=== PATIENT | male | born 1995 | race African-American/Black ===

== ENCOUNTER 2017-11-14 13:15 | Emergency (ER) | payer OTHER ==
[~2017-11-14] VITALS: Ht 177.8 cm; Wt 74.8 kg
[~2017-11-14 13:15] MED LIST: ALBU1AER9 INH; AZIT250T PO; BENZ100C84 PO; DICY20TA35 PO; IBUP-1459 PO; ONDA4TAB46 PO
[2017-11-14 13:19] VITALS: Ht 177.8 cm; Wt 74.8 kg
[2017-11-14] MEDS ORDERED: CEPH500C PO (13:39)
[2017-11-14] MEDS ORDERED: SULF800T23 PO (13:39)
--- NOTE | 2017-11-14 13:44 | EMERGENCY ROOM VISIT NOTE ---
History First contact with patient: 13:23 Chief Complaint: WOUND INFECTION Stated Complaint: BOIL/BUMP ON BUTTOCKS,STILL IRRITATED AFTER MEDS Nursing Triage Summary: pt reports he went to urgent care 3 weeks ago given antibiotics then and has since gotten bigger, has been attempoting to pop using warm compresses not helping. hurts to sit. on right buttocks History of Present Illness The patient is a 22 year old male who presents to the Emergency Room with complaints of 3 painful lumps on his right buttock. The patient reports that he was seen at an urgent care center 3 weeks ago for a similar infection. He was provided a prescription for Bactrim, and denies any significant improvement. The patient reports that over the past few days, the one lump has gotten significantly larger and more painful, especially when sitting on his buttocks. The patient has not noticed any drainage over the past few days, but reports that about a week ago there was a small amount of pus came out of it. The patient denies any fevers or chills, and rates his discomfort a 5 out of 10. Review of Systems 10 system review was performed and was negative except for pertinent positives and negatives as indicated in history of present illness Past Medical/Surgical History Medical Problems: (1) Asthma (2) Otitis media of right ear (3) Upper respiratory infection Surgical Problems: (1) S/P tonsillectomy Family History Cancer Diabetes mellitus FHx: irritable bowel syndrome Gallbladder disease Heart disease Hypertension Kidney disease Kidney stones Lung disease Social History Smoking Status: Current Every Day Smoker Alcohol Use: none Drug Use: none Marital Status: single Housing Status: lives with family Occupation Status: employed Current/Historical Medications Scheduled Cephalexin Monohydrate (Keflex), 500 MG PO QID Dicyclomine Hcl (Bentyl), 20 MG PO BID Sulfa/Trimethoprim (Bactrim Ds 800MG/160MG), 1 TAB PO BID Scheduled PRN Albuterol (Proair Hfa), 2 PUFFS INH Q4H PRN for SOB/Wheezing Physical Exam Vital Signs Date Time Temp Pulse Resp B/P (MAP) Pulse Ox O2 Delivery O2 Flow Rate FiO2 11/14/17 13:19 36.7 100 18 113/78 98 Room Air Physical Exam CONSTITUTIONAL: Healthy and well nourished. Alert and oriented X 3 with positive affect. HEENT: Normocephalic, atraumatic. Pupils equal, round and reactive. MUSCULOSKELETAL: Full range of motion of all joints without discomfort. INTEGUMENTARY: Examination of the right medial buttock shows an area of induration about the size of a BB that is tender to palpation. There is no overriding erythema, fluctuance or drainage. It too additional sites are more medial and inferior and barely palpable without any surrounding erythema. NEUROLOGIC: No focal neurologic deficits noted. Medical Decision & Procedures ED Course Patient history and physical exam were performed. Nurse's notes were reviewed. Vital signs were reviewed and were normal. The patient was advised that there is currently no abscess formation, therefore attempted I&D procedure was not recommended. The patient will be provided a couple coverage with Keflex and Bactrim DS antibiotics. He was encouraged to return for any progressively worsening infection, otherwise may follow up with his PCP as needed. The patient was advised that if these continue to reoccur, he may need to see a board machine set up operator for excision. This can be arranged through his PCP. The patient was encouraged to intermittently apply a warm moist compress, and alternate ibuprofen and Tylenol as needed for additional pain relief. The patient was happy with plan of care, voiced understanding of all discharge instructions, refused any analgesics while in the emergency department, and rated his pain a 3 out of 10 at the conclusion of my exam. Medical Decision Medication Reconcilliation Current Medication List: was personally reviewed by me Blood Pressure Screening Patient's blood pressure: Normal blood pressure Impression Primary Impression: Cellulitis of right buttock Departure Information Dispostion Home / Self-Care Prescriptions Sulfa/Trimethoprim (Bactrim Ds 800MG/160MG) Tab 1 TAB PO BID for 7 Days, #14 TAB Prov: Hood Guzman PA 11/14/17 Cephalexin Monohydrate (Keflex) 500 Mg Cap 500 MG PO QID for 7 Days, #28 CAP Prov: Hood Guzman PA 11/14/17 Referrals No Doctor, Assigned Forms HOME CARE DOCUMENTATION FORM, IMPORTANT VISIT INFORMATION Patient Instructions My [facility] Additional Instructions Complete all Keflex and Bactrim DS antibiotics as prescribed. Continue to intermittently apply warm moist compresses to help promote drainage. Ibuprofen 800 mg and/or Tylenol 1000 mg every 8 hours. You may also alternate these medications for more effective pain relief: Ibuprofen --4 HRS--> Tylenol --4 HRS--> ibuprofen --4 HRS--> Tylenol .... Return for any progressively worsening swelling or developing fever.
[2017-11-14 13:45] VITALS: BP 113/78; PULSE 100; TEMP 36.7; O2SAT 98
== END 2017-11-14 13:46 | disposition home or self-care (01) ==
LOC: C.EDB 13:17 → C.EDD 13:46
DX: L03.317 Cellulitis of buttock (principal); J45.909 Unspecified asthma, uncomplicated; F17.200 Nicotine dependence, unspecified, uncomplicated; Z80.9 Family history of malignant neoplasm, unspecified; Z83.3 Family history of diabetes mellitus; Z83.79 Family history of other diseases of the digestive system; Z82.49 Family history of ischemic heart disease and other diseases of the circulatory system; Z84.1 Family history of disorders of kidney and ureter

== ENCOUNTER 2018-03-28 10:03 | Emergency (ER) | payer OTHER ==
[~2018-03-28] VITALS: Ht 177.8 cm; Wt 74.1 kg
[~2018-03-28 10:03] MED LIST changes: -AZIT250T PO; -BENZ100C84 PO; -IBUP-1459 PO; -ONDA4TAB46 PO
[2018-03-28 10:12] VITALS: TEMP 36.6; Ht 177.8 cm; Wt 74.1 kg
[2018-03-28] MEDS ORDERED: ONDANSETRON INJ 2 MG/ML 2 ML VIAL IV STA (10:30)
[2018-03-28] MEDS ORDERED: SODIUM CHLORIDE 0.9% 1000ML 1,000 ML IV STA (10:30)
[2018-03-28] MEDS ORDERED: MoRPHine SULFATE 4 MG/ML 1 ML CARP\\VIAL IV STA (10:34)
[2018-03-28] MEDS ORDERED: ONDA4TAB46 PO (10:47)
[2018-03-28] MEDS ORDERED: RANI300T2 PO (10:47)
[2018-03-28] MEDS ORDERED: LVS125 PO (10:47)
[2018-03-28 11:11] LABS: BASO % 0.3 %; BASO ABS # 0.02 K/uL (0-0.2); EOS % 2.6 %; EOS ABS # 0.21 K/uL (0-0.5); HEMATOCRIT 48.7 % (42-52); HEMOGLOBIN 17.4 g/dL (14.0-18.0); IG# 0.01 K/uL (0.00-0.02); LYMPH ABS # 2.07 K/uL (1.2-3.4); MEAN CELL VOLUME 85.4 fL (80-100); MEAN CORPUSCULAR HEMOGLOBIN 30.5 pg (25-34); MEAN CORPUSCULAR HGB CONC 35.7 g/dl (32-36); MEAN PLATELET VOLUME 9.5 fL (7.4-10.4); MONO % 7.9 %; MONO ABS # 0.63 K/uL (0.11-0.59); NEUT % 63.1 %; NEUT ABS # 5.02 K/uL (1.4-6.5); PLATELET COUNT 205 K/uL (130-400); RED CELL DISTRIBUTION WIDTH CV 12.5 % (11.5-14.5); RED CELL DISTRIBUTION WIDTH SD 39.4 fL (36.4-46.3); WHITE BLOOD COUNT 7.96 K/uL (4.8-10.8)
[2018-03-28] MEDS ORDERED: OPTIRAY 320 IV PRN (11:15)
[2018-03-28 11:26] LABS: ALBUMIN 4.4 gm/dl (3.4-5.0); CALCIUM 9.6 mg/dl (8.5-10.1)
[2018-03-28 11:29] LABS: TOTAL PROTEIN 7.4 gm/dl (6.4-8.2)
--- NOTE | 2018-03-28 13:40 | DIAGNOSTIC IMAGING REPORT ---
ABDOMEN AND PELVIS CT WITH IV AND ORAL CONTRAST CT DOSE: 462.78 mGycm HISTORY: Chronic rectal pain with diarrhea rectal pain and diarrhea eval for colitis TECHNIQUE: Multiaxial CT images of the abdomen and pelvis were performed following the use of intravenous and oral contrast. A dose lowering technique was utilized adhering to the principles of ALARA. COMPARISON STUDY: CT abdomen and pelvis 01/27/2016. FINDINGS: Lung bases are clear. No pneumatosis or pneumoperitoneum. Imaged inferior cardiac chambers are unremarkable. Gallbladder is mildly contracted. Liver, spleen, pancreas and adrenal glands are within normal limits. Kidneys, ureters and bladder are within normal limits. Aorta is normal in course and caliber. No bulky adenopathy. No bowel obstruction or focal bowel wall thickening identified. No focal abnormality identified within the rectum. No perirectal abscess or significant inflammatory changes. Mild tortuosity of the sigmoid colon. Normal appendix. No ascites or mesenteric inflammatory changes. Soft tissues are within normal limits. Bones appear intact. IMPRESSION: 1. No acute intra-abdominal or intrapelvic abnormality identified. No bowel obstruction or focal bowel wall thickening. 2. Normal appendix. Electronically signed by: Ketan Auguste M.D. 03/28/2018 1:39 PM Dictated Date/Time: 03/28/2018 1:32 PM
[2018-03-28 13:51] VITALS: BP 114/60; PULSE 66; O2SAT 100
[2018-03-28] MEDS ORDERED: ONDA4TAB10 SL (13:51)
--- NOTE | 2018-03-28 16:24 | EMERGENCY ROOM VISIT NOTE ---
History Report prepared by Gio: Belen Vasquez Under the Supervision of: Dr. Kar Fitzpatrick M.D. First contact with patient: 10:23 Chief Complaint: DIARRHEA Stated Complaint: DIARRHEA,RECTAL PAIN,POSSIBLE UC FLARE History of Present Illness The patient is a 23 year old male who presents to the Emergency Room with complaints of persistent diarrhea starting 3 days ago. He reports that he went to the bathroom 7 times during the course of the night. His stool has been watery, but without blood. He did have some blood on the toilet paper after wiping. He vomited yesterday. He reports cramping abdominal pain. He is having rectal pain which feels like needles. He has had rectal pain for 2 months now. He also has chronic diarrhea. He is followed by a corporate travel coordinator. The patient states that he has had worsening abdominal pain and diarrhea over the past 2 years. He had blood work 2 weeks ago indicating possible autoimmune disease. He is scheduled for a colonoscopy and endoscopy for possible ulcerative colitis. He is on ranitidine and Laxin. He is fatigued. He denies any urinary symptoms. He is unsure of fever because he does not have a thermometer at home. Source of History: patient Onset: 3 days ago Position: abdomen Quality: other (diarrhea) Timing: other (persistent) Associated Symptoms: + vomiting, + abdominal pain, + fatigue, No hematochezia, No urinary symptoms Note: Pt reports rectal pain. Review of Systems See HPI for pertinent positives & negatives. A total of 10 systems reviewed and were otherwise negative. Past Medical & Surgical Medical Problems: (1) Asthma (2) Otitis media of right ear (3) Type 2 Diabetes Mellitus Without Complications (4) Upper respiratory infection Surgical Problems: (1) S/P tonsillectomy Family History Cancer Diabetes mellitus FHx: irritable bowel syndrome Gallbladder disease Heart disease Hypertension Kidney disease Kidney stones Lung disease Social History Smoking Status: Current Every Day Smoker Alcohol Use: none Drug Use: none Marital Status: single Housing Status: lives with family Occupation Status: employed Current/Historical Medications Scheduled Hyoscyamine Sulfate (Hyoscyamine Sulfate), 1 TAB PO QID Ondasetron Odt (Zofran Odt), 4 MG SL Q6H Ranitidine (Zantac), 300 MG PO HS Scheduled PRN Ondansetron Hcl (Zofran), 4 MG PO for Nausea Allergies Coded Allergies: No Known Allergies (Unverified , NONE, 03/28/18) Physical Exam Vital Signs Date Time Temp Pulse Resp B/P (MAP) Pulse Ox O2 Delivery O2 Flow Rate FiO2 03/28/18 13:51 66 18 114/60 100 Room Air 03/28/18 11:50 78 18 112/75 99 Room Air 03/28/18 10:12 36.6 126 18 134/67 99 Room Air Physical Exam Constitutional: Vital signs reviewed. Eyes: Pupils are equal round reactive to light. Conjunctiva are noninjected. ENT: Pharynx is clear without erythema or exudate. Mucous membranes are dry. Neck supple without meningeal signs. Respiratory: Clear to auscultation bilaterally. Breath sounds are equal bilaterally. Cardiovascular: Regular rate and rhythm. No rubs or gallops. GI: Soft, nondistended and lower abdominal tenderness without guarding. Bowel sounds are present. Musculoskeletal: No peripheral edema. No lower extremity tenderness. Integumentary: No cyanosis. Neurological: The patient is awake and alert. No focal deficits. Psychiatric: Normal affect. Medical Decision & Procedures ER Provider Diagnostic Interpretation: Radiology results as stated below per my review and the radiologist's interpretation: ABDOMEN AND PELVIS CT WITH IV AND ORAL CONTRAST CT DOSE: 462.78 mGycm HISTORY: Chronic rectal pain with diarrhea rectal pain and diarrhea eval for colitis TECHNIQUE: Multiaxial CT images of the abdomen and pelvis were performed following the use of intravenous and oral contrast. A dose lowering technique was utilized adhering to the principles of ALARA. COMPARISON STUDY: CT abdomen and pelvis 01/27/2016. FINDINGS: Lung bases are clear. No pneumatosis or pneumoperitoneum. Imaged inferior cardiac chambers are unremarkable. Gallbladder is mildly contracted. Liver, spleen, pancreas and adrenal glands are within normal limits. Kidneys, ureters and bladder are within normal limits. Aorta is normal in course and caliber. No bulky adenopathy. No bowel obstruction or focal bowel wall thickening identified. No focal abnormality identified within the rectum. No perirectal abscess or significant inflammatory changes. Mild tortuosity of the sigmoid colon. Normal appendix. No ascites or mesenteric inflammatory changes. Soft tissues are within normal limits. Bones appear intact. IMPRESSION: 1. No acute intra-abdominal or intrapelvic abnormality identified. No bowel obstruction or focal bowel wall thickening. 2. Normal appendix. Electronically signed by: Ketan Auguste M.D. 03/28/2018 1:39 PM Dictated Date/Time: 03/28/2018 1:32 PM Laboratory Results 03/28/18 11:05 Red Blood Count 5.70, Mean Corpuscular Volume 85.4, Mean Corpuscular Hemoglobin 30.5, Mean Corpuscular Hemoglobin Concent 35.7, Mean Platelet Volume 9.5, Neutrophils (%) (Auto) 63.1, Lymphocytes (%) (Auto) 26.0, Monocytes (%) (Auto) 7.9, Eosinophils (%) (Auto) 2.6, Basophils (%) (Auto) 0.3, Neutrophils # (Auto) 5.02, Lymphocytes # (Auto) 2.07, Monocytes # (Auto) 0.63, Eosinophils # (Auto) 0.21, Basophils # (Auto) 0.02 03/28/18 11:05 Test 03/28/18 11:05 03/28/18 11:50 White Blood Count 7.96 K/uL (4.8-10.8) Red Blood Count 5.70 M/uL (4.7-6.1) Hemoglobin 17.4 g/dL (14.0-18.0) Hematocrit 48.7 % (42-52) Mean Corpuscular Volume 85.4 fL (80-100) Mean Corpuscular Hemoglobin 30.5 pg (25-34) Mean Corpuscular Hemoglobin Concent 35.7 g/dl (32-36) Platelet Count 205 K/uL (130-400) Mean Platelet Volume 9.5 fL (7.4-10.4) Neutrophils (%) (Auto) 63.1 % Lymphocytes (%) (Auto) 26.0 % Monocytes (%) (Auto) 7.9 % Eosinophils (%) (Auto) 2.6 % Basophils (%) (Auto) 0.3 % Neutrophils # (Auto) 5.02 K/uL (1.4-6.5) Lymphocytes # (Auto) 2.07 K/uL (1.2-3.4) Monocytes # (Auto) 0.63 K/uL (0.11-0.59) Eosinophils # (Auto) 0.21 K/uL (0-0.5) Basophils # (Auto) 0.02 K/uL (0-0.2) RDW Standard Deviation 39.4 fL (36.4-46.3) RDW Coefficient of Variation 12.5 % (11.5-14.5) Immature Granulocyte % (Auto) 0.1 % Immature Granulocyte # (Auto) 0.01 K/uL (0.00-0.02) Anion Gap 7.0 mmol/L (3-11) Est Creatinine Clear Calc Drug Dose 120.7 ml/min Estimated GFR () 124.1 Estimated GFR (Non- 107.1 BUN/Creatinine Ratio 8.6 (10-20) Calcium Level 9.6 mg/dl (8.5-10.1) Total Bilirubin 0.9 mg/dl (0.2-1) Direct Bilirubin 0.2 mg/dl (0-0.2) Aspartate Amino Transf (AST/SGOT) 21 U/L (15-37) Alanine Aminotransferase (ALT/SGPT) 29 U/L (12-78) Alkaline Phosphatase 108 U/L (45-117) Total Protein 7.4 gm/dl (6.4-8.2) Albumin 4.4 gm/dl (3.4-5.0) Lipase 208 U/L (73-393) Urine Color YELLOW Urine Appearance CLEAR (CLEAR) Urine pH 8.0 (4.5-7.5) Urine Specific [place] 1.009 (1.000-1.030) Urine Protein NEG (NEG) Urine Glucose (UA) NEG (NEG) Urine Ketones NEG (NEG) Urine Occult Blood NEG (NEG) Urine Nitrite NEG (NEG) Urine Bilirubin NEG (NEG) Urine Urobilinogen NEG (NEG) Urine Leukocyte Esterase NEG (NEG) Laboratory results as reviewed by me. Medications Administered Medications (Trade) Dose Ordered Sig/Sarah Route Start Time Stop Time Status Last Admin Dose Admin Ondansetron HCl (Zofran Inj) 4 mg NOW STAT IV 03/28/18 10:30 03/28/18 10:31 DC 03/28/18 10:51 4 MG Sodium Chloride 1,000 ml @ 999 mls/hr Q1H1M STAT IV 03/28/18 10:30 03/28/18 11:30 DC 03/28/18 11:13 999 MLS/HR Morphine Sulfate (MoRPHine SULFATE INJ) 4 mg NOW STAT IV 03/28/18 10:34 03/28/18 10:35 DC 03/28/18 10:52 4 MG ED Course 1025: The patient was evaluated in room B10. A complete history and physical exam was performed. 1030: Sodium Chloride 1000 ml @ 999 mls/hr IV, Zofran Inj 4 mg IV. 1033: I reevaluated the patient. He confirms that he has a ride home. 1034: Morphine Sulfate 4 mg IV. 1349: Upon reevaluation, the patient appeared to have improvement of his symptoms. I discussed tonight's findings with him. He verbalized agreement of the treatment plan. He was discharged home. Medical Decision This is a 23-year-old male presents with abdominal pain, diarrhea and vomiting. Differential diagnosis includes colitis, enteritis, inflammatory bowel disease , irritable bowel syndrome, proctitis, foodborne illness, dehydration. I did perform a limited focused review of portions of the patient's old chart on the electronic medical record. The patient has had no recent pertinent visits to this hospital. I did evaluate the patient as noted above. Patient is presenting with lower abdominal and rectal pain. He has some tenderness in the lower abdomen. He has been dealing with these issues for several months and is scheduled for colonoscopy. He was told that he possibly has an autoimmune issue and may have ulcerative colitis. IV access was established. The patient was able to get a ride home and so was treated with IV Zofran and morphine IV. He was also given normal saline IV. I did order and personally review the patient's urinalysis as described above. I did order and review the patient's blood work as noted in the electronic medical record. His white blood cell count is not elevated. I did order a CT of the abdomen and pelvis. I did review the images myself as well as the radiology report as described above. There is no evidence of acute abnormality. I did order stool studies for C. difficile and a culture but he was unable to give us a sample. I did reassess the patient. He is feeling better. I did discuss the test results with him. I did recommend he follow-up closely with his doctor and corporate travel coordinator. He was given return instructions as outlined below and discharged in good condition. Medication Reconcilliation Current Medication List: was personally reviewed by me Blood Pressure Screening Patient's blood pressure: Elevated blood pressure Blood pressure disposition: Referred to PCP Impression Primary Impression: Lower abdominal pain Additional Impressions: Vomiting Diarrhea Dehydration Scribe Attestation The scribe's documentation has been prepared under my direct and personally reviewed by me in its entirety. I confirm that the note above accurately reflects all work, treatment, procedures, and medical decision making performed by me. Departure Information Dispostion Home / Self-Care Prescriptions Ondasetron Odt (ZOFRAN ODT) 4 Mg Tab 4 MG SL Q6H for Nausea, #6 TAB Prov: Kar Fitzpatrick M.D. 03/28/18 Referrals Pepito Silva MD Forms HOME CARE DOCUMENTATION FORM, IMPORTANT VISIT INFORMATION, WORK / SCHOOL INSTRUCTIONS Patient Instructions ED Abdominal Pain Unkn Cause Male, My [facility] Additional Instructions You have been examined and treated today on an emergency basis only. This is not a substitute for, or an effort to provide, complete comprehensive medical care. It is impossible to recognize and treat all injuries or illnesses in a single emergency department visit. It is therefore important that you follow up closely with your physician and corporate travel coordinator. Call as soon as possible for an appointment. Return for worsening symptoms or if you develop fever, or any other concerning symptoms. Problem Qualifiers Additional Impressions: Vomiting Vomiting type: unspecified Vomiting Intractability: non-intractable Nausea presence: with nausea Qualified Codes: R11.2 - Nausea with vomiting, unspecified Diarrhea Diarrhea type: unspecified type Qualified Codes: R19.7 - Diarrhea, unspecified
== END 2018-03-28 14:07 | disposition home or self-care (01) ==
LOC: C.EDB 10:05
DX: E86.0 Dehydration (principal); R19.7 Diarrhea, unspecified; R11.2 Nausea with vomiting, unspecified; R10.30 Lower abdominal pain, unspecified; J45.909 Unspecified asthma, uncomplicated; E11.9 Type 2 diabetes mellitus without complications; F17.210 Nicotine dependence, cigarettes, uncomplicated; Z79.899 Other long term (current) drug therapy; Z80.9 Family history of malignant neoplasm, unspecified; Z83.3 Family history of diabetes mellitus; Z82.49 Family history of ischemic heart disease and other diseases of the circulatory system; Z84.1 Family history of disorders of kidney and ureter; Z83.79 Family history of other diseases of the digestive system